=== PATIENT | male | born 1995 | race Caucasian/White ===

== ENCOUNTER → 2018-06-06 | Outpatient (CLI) | payer OTHER ==
--- NOTE | 2018-06-06 08:31 | RADIOLOGY REPORT (SQ) ---
EXAM DESCRIPTION: U/S RETROPERITON (RENAL/AORTA) COMPLETED DATE/TIME: 06/06/2018 8:13 am REASON FOR STUDY: JANELLE (I70.1), RENOVASCULAR HTN (I15.0) COMPARISON: None. TECHNIQUE: Realtime and static grayscale images acquired. Selected color Doppler, velocities and spe ctral images recorded. LIMITATIONS: None. FINDINGS: RIGHT KIDNEY: RENAL ARTERY VELOCITIES: 97 cm/sec. Segmental artery velocity 53 cm/sec. RENAL VEIN: Color doppler flow present, patent. VELOCITY RATIO: 1.47. Normal waveforms. KIDNEY: Normal size. No significant pathology. LEFT KIDNEY: RENAL ARTERY VELOCITIES: 65 cm/sec. Segmental artery velocity 52 cm/sec. RENAL VEIN: Color doppler flow present, patent. VELOCITY RATIO: 0.98. Normal waveforms. KIDNEY: Normal size. No significant pathology. BLADDER: Normal. OTHER: No other significant finding. IMPRESSION: NO DOPPLER EVIDENCE OF HEMODYNAMICALLY SIGNIFICANT RENAL ARTERY STENOSIS. COMMENT: NORMAL RENAL ARTERY/AORTA VELOCITY RATIO IS LESS THAN OR EQUAL TO 3.5. TECHNICAL DOCUMENTATION: JOB ID: [id number] [employer]- All Rights Reserved Reading location - IP/workstation name: [email or web address]
--- NOTE | 2018-06-06 09:07 | RADIOLOGY REPORT (SQ) ---
EXAM DESCRIPTION: U/S [facility] DUPLEX ART/CARROL FLOW COMPLETED DATE/TIME: 06/06/2018 8:13 am REASON FOR STUDY: JANELLE (I70.1), RENOVASCULAR HTN (I15.0) COMPARISON: None. TECHNIQUE: Realtime and static grayscale images acquired. Selected color Doppler, velocities and spe ctral images recorded. LIMITATIONS: None. FINDINGS: RIGHT KIDNEY: RENAL ARTERY VELOCITIES: 97 cm/sec. Segmental artery velocity 53 cm/sec. RENAL VEIN: Color doppler flow present, patent. VELOCITY RATIO: 1.5. Normal waveforms. KIDNEY: Normal size. No significant pathology. LEFT KIDNEY: RENAL ARTERY VELOCITIES: 65 cm/sec. Segmental artery velocity 52 cm/sec. RENAL VEIN: Color doppler flow present, patent. VELOCITY RATIO: 1.0. Normal waveforms. KIDNEY: Normal size. No significant pathology. BLADDER: Normal. OTHER: No other significant finding. IMPRESSION: NO DOPPLER EVIDENCE OF HEMODYNAMICALLY SIGNIFICANT RENAL ARTERY STENOSIS. COMMENT: NORMAL RENAL ARTERY/AORTA VELOCITY RATIO IS LESS THAN OR EQUAL TO 3.5. TECHNICAL DOCUMENTATION: JOB ID: [id number] [employer]- All Rights Reserved Reading location - IP/workstation name: [email or web address]
== END ==
LOC: RAD 07:01
PROVIDERS: ATTEND Student in an Organized Health Care Education/Training Program
DX: I70.1 Atherosclerosis of renal artery (principal); I15.0 Renovascular hypertension
CPT/HCPCS: 76770; 93976